=== PATIENT | female | born 1995 | race Caucasian/White ===

== ENCOUNTER 2019-03-08 12:12 | Outpatient (CLI) | payer BC ==
--- NOTE | 2019-03-08 15:12 | Diagnostic Imaging Report ---
Indication: Left foot pain Technique: 3 views right foot Comparison: none Findings: No acute fractures. No dislocations. The joint spaces are preserved Impression: Negative
== END 2019-03-08 14:22 | disposition home or self-care (01) ==
LOC: RAD 12:12
DX: M25.572 Pain in left ankle and joints of left foot (principal)